=== PATIENT | male | born 2000 | race Caucasian/White ===

== ENCOUNTER 2020-10-20 19:35 | Emergency (ER) | payer OTHER ==
[~2020-10-20] VITALS: Ht 175.3 cm; Wt 69.4 kg
[2020-10-20 20:00] LABS: BASOPHILS % (AUTO) 1 % (0-1); EOSINOPHILS % (AUTO) 1 % (1-7); LYMPHOCYTES % (AUTO) 27 % (22-44); MEAN CORPUSCULAR HEMOGLOBIN 31.4 pg (27.5-34.5); MEAN CORPUSCULAR HGB CONC 34.2 g/dL (33.2-36.2); MEAN PLATELET VOLUME 8.9 fL (7.4-10.4); MONOCYTES % (AUTO) 6 % (2-9); NEUTROPHILS % (AUTO) 65 % (42-75); PLATELET COUNT 184 x10^3/uL (130-400); RED CELL DISTRIBUTION WIDTH 12.5 % (9.4-14.8)
[2020-10-20] MEDS ORDERED: LIDOCAINE-MPF 1%, 5ML INFIL ONE (20:00)
[2020-10-20] MEDS ORDERED: DIPH,PERTUSS(ACELL),TET VAC/PF 0.5 ML IM-VACC ONE ×2 (20:00→21:52)
[2020-10-20 20:03] LABS: MD NO
[2020-10-20 20:12] LABS: ALANINE AMINOTRANSFERASE 24 U/L (12-78); ANION GAP 5 mmol/L (5-15); CALCIUM 8.2 mg/dL (8.5-10.1); CHLORIDE 107 mmol/L (98-107); CREATININE 0.87 mg/dL (0.7-1.3)
[2020-10-20 20:15] LABS: ALKALINE PHOSPHATASE 62 U/L (45-117); BILIRUBIN,TOTAL 0.5 mg/dL (0.2-1.0); TOTAL PROTEIN 7.2 g/dL (6.4-8.2)
--- NOTE | 2020-10-20 21:42 | NUR ---
PT TO ROOM FROM LOBBY
[2020-10-20] MEDS ORDERED: LIDOCAINE-MPF 1%, 5ML ONE (21:52)
[2020-10-20 22:01] VITALS: BP 117/72
== END 2020-10-20 22:46 | disposition home or self-care (01) ==
LOC: ED 22:30
DX: S01.01XA Laceration without foreign body of scalp, initial encounter (principal); R55 Syncope and collapse; R42 Dizziness and giddiness; X58.XXXA Exposure to other specified factors, initial encounter; Y93.89 Activity, other specified; Y92.89 Other specified places as the place of occurrence of the external cause; Y99.8 Other external cause status
CPT/HCPCS: 12001; 36415; 80053; 85025; 90471; 90715; 93005; 99284

== ENCOUNTER 2020-10-28 13:30 | Emergency (ER) | payer OTHER ==
[~2020-10-28] VITALS: Ht 175.3 cm; Wt 68.0 kg
--- NOTE | 2020-10-28 13:40 | NUR ---
PT HERE FOR STAPLE REMOVAL FROM POSTERIOR HEAD. 2 CLARA PRESENT; EDGES APPROXIMATED. PT A&OX4, RESP EVEN & UNLABORED, SPEECH CLEAR, SKIN WNL.
--- NOTE | 2020-10-28 15:00 | NUR ---
CLARA REMOVED. WOUND CARE DISCUSSED W/ PT; UNDERSTANDING VERBALIZED.
[2020-10-28 15:11] VITALS: BP 117/74
== END 2020-10-28 15:13 | disposition home or self-care (01) ==
LOC: ED 13:41
DX: S01.91XD Laceration without foreign body of unspecified part of head, subsequent encounter (principal); X58.XXXD Exposure to other specified factors, subsequent encounter
CPT/HCPCS: 99282